=== PATIENT | female | born 1960 | race Caucasian/White ===

== ENCOUNTER → 2019-06-19 | Outpatient (CLI) | payer SELFPAY ==
--- NOTE | 2019-06-19 15:29 | US ---
PROVIDED CLINICAL HISTORY/REASON FOR EXAM: Hypercalcemia- Parathyroid Sono TECHNIQUE: Real time sonographic examination was performed by a air compressor operator and multiple longitudinal and transverse ultrasound images through the thyroid gland were acquired. In addition, Doppler was performed. COMPARISON: None available. FINDINGS: The right thyroid lobe measures 1.1 x 0.7 x 1.1 cm and the left thyroid lobe measures cm. The isthmus measures cm. The thyroid gland is normal in size and echogenicity. TI-RADS Nodule: 1 Location: Right mid Size: 0.9 x 0.6 x 0.8 cm Composition: Mixed cystic and solid - 1 Echogenicity: Hyper/iso-echoic - 1 Shape: [id number] - 0 Margin: Smooth - 0 Echogenic foci: None - 0 TI-RADS Total Points: 2 (TR-2) TR- TR-2: No further follow up. (Cystic nodules would not be compatible with a parathyroid gland) Measured area labeled right neck trans, measuring 0.8 x 0.4 x 0.7 cm is likely normal thyroid tissue (tubercle of Zuckerkandl). TI-RADS Nodule: 2 Location: Left mid Size: 2.2 x 1.5 x 1.5 cm Composition: Solid - 2 Echogenicity: Hyper/iso-echoic - 1 Shape: [id number]-bdku-wbzj - 0 Margin: Lobulated or irregular - 2 Echogenic foci: Punctate echogenic foci - 3 TI-RADS Total Points: 8(TR-5) TR- TR-5 > 1.0 cm. Recommend FNA. TI-RADS Nodule: 3 Location: Left mid Size: 1.4 x 0.7 x 1.3 cm Composition: Cystic - 0 Echogenicity: Anechoic - 0 Shape: [id number]-tosp-xjps - 0 Margin: Smooth - 0 Echogenic foci: Punctate echogenic foci - 3 TI-RADS Total Points: 3 (TR-3) TR- TR-3 < 1.5 cm. No further follow up. (Colloid cyst) TI-RADS Nodule: 4 Location: Right mid Size: 1.1 x 0.7 x 1.1 cm Composition: Cystic - 0 Echogenicity: Anechoic - 0 Shape: [id number] - 0 Margin: Smooth - 0 Echogenic foci: Punctate echogenic foci - 3 TI-RADS Total Points: 3 (TR-3) TR- TR-3 < 1.5 cm. No further follow up. (Colloid cyst) Measured left cervical lymph node measuring 1.4 x 0.6 x 0.8 cm. IMPRESSION: 1. Left thyroid lobe nodule measuring 2.2 cm. Recommend ultrasound-guided FNA for further evaluation. 2. Nonspecific left cervical lymph node. 3. No parathyroid tissue definitively identified. Electronically signed by: Immanuel Arevalo MD 06/19/2019 3:27 PM CDT
== END ==
LOC: US 13:39
PROVIDERS: ATTEND Family Medicine
DX: E83.52 Hypercalcemia (principal); E04.1 Nontoxic single thyroid nodule